=== PATIENT | male | born 1960 | race Caucasian/White ===

== ENCOUNTER 2018-11-23 11:57 | Outpatient (CLI) | payer MEDICARE ==
--- NOTE | 2018-11-23 12:39 | RAD ---
CHEST TWO VIEWS: HISTORY: Cough. Hemoptysis. FINDINGS: Heart size is normal. Lungs are clear. No confluent pneumonia, overt edema, or pleural effusion. IMPRESSION: 1. No acute intrathoracic disease. 2. Atherosclerosis of the aorta. POS: [facility]
== END 2018-11-23 11:58 | disposition home or self-care (01) ==
LOC: MADRAD 11:57
PROVIDERS: ATTEND General Practice
DX: R04.2 Hemoptysis (principal); R05 Cough; I70.0 Atherosclerosis of aorta
CPT/HCPCS: 71046

== ENCOUNTER 2019-04-26 06:27 | Emergency (ER) | payer MEDICARE ==
[2019-04-26 07:17] LABS: Bilirubin Negative (Negative); Blood, Urine Negative (Negative); Clarity Clear (Clear); Glucose, Urine (Dipstick) Negative (Negative); Leukocyte Negative (Negative); Nitrite Negative (Negative); Protein, Urine (Dipstick) Negative (Neg-Trace); Urobilinogen 0.2 mg/dL (Less than 2)
== END 2019-04-26 07:45 | disposition home or self-care (01) ==
LOC: MADERS 06:27
DX: N40.1 Benign prostatic hyperplasia with lower urinary tract symptoms (principal); R33.8 Other retention of urine; I10 Essential (primary) hypertension
CPT/HCPCS: 51703; 81003; 87086

== ENCOUNTER 2020-06-20 20:41 | Emergency (ER) | payer MEDICARE ==
[~2020-06-20 20:41] MED LIST: Iopamidol 370 76% 125 ML VIAL FS ONE
[2020-06-20] MEDS ORDERED: Aspirin Chewable 81 MG TAB ONE (20:59)
--- NOTE | 2020-06-20 21:19 | RAD ---
SINGLE VIEW OF THE CHEST: 06/20/20 COMPARISON: 11/23/18 HISTORY: Chest pain. FINDINGS: Single view of the chest shows normal sized cardiomediastinal silhouette with atherosclerotic calcifi cations in the aorta. There is no evidence of consolidation, mass or pleural effusion. Degenerative c hanges are seen in the spine. IMPRESSION: No evidence of acute cardiopulmonary disease. POS: [facility]
[2020-06-20 21:35] LABS: #Basophils 0.1 thou/uL (0.0-0.2); #Eosinphils 0.1 thou/uL (0.0-0.7); #Lymphocytes 2.4 thou/uL (1.20-3.40); #Monocytes 0.6 thou/uL (0.11-0.59); #Neutrophils 5.9 thou/uL (1.40-6.50); %Basophils 0.7 % (0.0-1.0); %Eosinophils 1.1 % (0.0-10.0); %Lymphocytes 26.6 % (21.0-51.0); %Neutrophils 64.6 % (42.0-75.0); Hemoglobin 14.5 g/dL (14.0-18.0); Mean Corpuscular HGB CONC 32.6 g/dL (32.0-36.0); Mean Corpuscular Hemoglobin 29.6 pg (27.0-31.0); Mean Corpuscular Volume 90.7 fL (78.0-98.0); Mean Platelet Volume 8.7 fL (7.4-10.4); Platelet Count 242 thou/uL (130-400); RBC Distribution Width 11.6 % (11.5-14.5); White Blood Cell (WBC) Count 9.1 thou/uL (4.8-10.8)
[2020-06-20] MEDS ORDERED: Sodium Chloride 0.9% 1,000 ML ONE ×2 (21:48→22:48)
[2020-06-20 22:19] LABS: ALT (SGPT) 28 U/L (8-55); AST (SGOT) 21 U/L (5-34); Albumin 4.8 g/dL (3.5-5.0); Alkaline Phosphatase 54 U/L (40-110); Anion Gap 17 mmol/L (10-20); BUN (Urea Nitrogen) 12 mg/dL (8.4-25.7); Bilirubin, Total 0.7 mg/dL (0.2-1.2); CK (CPK) 88 U/L (30-200); Calc. Creatinine Clearance 0 mL/min (70-130); Calcium 9.4 mg/dL (7.8-10.44); Carbon Dioxide 24 mmol/L (22-29); Chloride 102 mmol/L (98-107); Glucose 90 mg/dL (70-105); Lipase 29 U/L (8-78); Potassium 3.3 mmol/L (3.5-5.1); Protein, Total 7.8 g/dL (6.0-8.3); Sodium 140 mmol/L (136-145)
--- NOTE | 2020-06-21 06:43 | CT ---
CTA CHEST WITH CONTRAST: Date: 06/20/2020 COMPARISON: CT abdomen and pelvis dated 09/01/2019. HISTORY: Chest pain. TECHNIQUE: Multiple contiguous axial images were obtained in a CTA of the chest with contrast per pulmonary embo lis protocol. 3D oblique MIP reformats and direct coronal reformats were performed. FINDINGS: The pulmonary arteries are well-opacified without filling defects to suggest pulmonary embolism. The heart is normal in size without focal cardiac abnormality. No hilar or mediastinal lymphadenopathy ar e appreciated. No focal infiltrates are seen in the lungs. No pneumothorax or pleural effusions seen. No suspicious pulmonary nodules are seen. There is a nonobstructing calcification in the left kidney, unchanged. The other visualized subdiaphr agmatic structures are unremarkable. The aorta is normal in caliber without evidence of dissection or aneurysmal dilatation. Degenerative changes are seen in the spine. The chest wall soft tissues are unremarkable. IMPRESSION: 1. No evidence of pulmonary thromboembolism. 2. Nonobstructing left renal calcification. POS: EAA
== END 2020-06-21 01:32 | disposition short-term general hospital (02) ==
LOC: MADERS 20:41
DX: R07.9 Chest pain, unspecified (principal); E78.5 Hyperlipidemia, unspecified; E78.00 Pure hypercholesterolemia, unspecified; I10 Essential (primary) hypertension; N40.0 Benign prostatic hyperplasia without lower urinary tract symptoms
CPT/HCPCS: 71045; 71275; 80053; 82550; 83690; 84484; 85025; 85379; 93005; J7050; Q9967